=== PATIENT | male | born 1975 | race Caucasian/White ===

== ENCOUNTER 2019-03-05 05:49 | Emergency (ER) | payer OTHER ==
[2019-03-05] MEDS ORDERED: Tetracaine HCl/PF 0.5% 4 ML Bottle EYELF ONE (06:02)
--- NOTE | 2019-03-05 06:19 | EDM.PDOC ---
ED HPI GENERAL MEDICAL PROBLEM - General Chief Complaint: Eye Problems Stated Complaint: OBJECT IN EYE Time Seen by Provider: 03/05/19 06:01 - History of Present Illness INITIAL COMMENTS - FREE TEXT/NARRATIVE: HISTORY AND PHYSICAL: History of present illness: The patient is a 43-year-old male who presents with complaints of left eye pain and a foreign body like sensation that started early yesterday evening. He doesn 't remember a specific event but says that he is outside in the dust and exposed to things going around and he started feeling some irritation in his eye which seemed to have worsened through the night. He tried to irrigate his eye and it did not help. He also tried [id number] Visine. He is here for evaluation. His last eye exam was less than 2 years ago he does not wear glasses or contact lenses. He has no systemic complaints Review of systems: As per history of present illness and below otherwise all systems reviewed and negative. Past medical history: As per history of present illness and as reviewed below otherwise noncontributory. Surgical history: As per history of present illness and as reviewed below otherwise noncontributory. Social history: No reported history of drug or alcohol abuse. Family history: As per history of present illness and as reviewed below otherwise noncontributory. Physical exam: General: Well developed well-nourished man who is nontoxic and vital signs are noted by me. He prefers to wear gloves sunglasses in the ED as he says the light does bother his eyes HEENT: Atraumatic, normocephalic, pupils reactive, EOMs are intact and sclera on the left eye is injected as is the conjunctiva, negative for conjunctival pallor or scleral icterus, mucous membranes moist, throat clear, neck supple, nontender, trachea midline. A foreign body is appreciated on gross exam at the 8 to 9 o'clock position on the iris of the left eye. CC below for more evaluation Lungs: Clear to auscultation, breath sounds equal bilaterally, chest nontender. Heart: S1S2, regular rate and rhythm no overt murmurs Abdomen: Soft, nondistended, nontender. Pelvis: Deferred Genitourinary: Deferred. Rectal: Deferred. Extremities: Atraumatic, full range of motion and no edema. Neurovascular unremarkable. Neuro: Awake, alert, oriented. Cranial nerves II through XII unremarkable. Cerebellum unremarkable. Motor and sensory unremarkable throughout. Exam nonfocal. Diagnostics: Visual acuity per nursing was 20/25 left eye 20/20 right eye Fluoroscein stain was performed by me after tetracaine instillation. No corneal abrasions or uptake were seen but the foreign body as described above was clearly seen. It is a small dark in point object. Therapeutics: Tdap 0615: Case was discussed with Dr. Ellis and he will meet the patient at 7 AM at [facility] for foreign body removal. Patient is aware of this plan Impression: Foreign body to left eye Definitive disposition and diagnosis as appropriate pending reevaluation and review of above. left eye Pain Score (Numeric/FACES): 5 - Related Data Allergies Allergy/AdvReac Type Severity Reaction Status Date / Time No Known Allergies Allergy Verified 03/05/19 06:03 Home Meds: Home Meds . [No Known Home Meds] 03/05/19 [History] Past Medical History HEENT History: Reports: None Cardiovascular History: Reports: None Respiratory History: Reports: None Gastrointestinal History: Reports: None Genitourinary History: Reports: None Musculoskeletal History: Reports: None Neurological History: Reports: None Psychiatric History: Reports: None Endocrine/Metabolic History: Reports: None Hematologic History: Reports: None Immunologic History: Reports: None Oncologic (Cancer) History: Reports: None Dermatologic History: Reports: None - Infectious Disease History Infectious Disease History: Reports: None - Past Surgical History Head Surgeries/Procedures: Reports: None HEENT Surgical History: Reports: Adenoidectomy, Tonsillectomy GI Surgical History: Reports: Appendectomy Male Surgical History: Reports: Vasectomy Musculoskeletal Surgical History: Reports: Other (See Below) Other Musculoskeletal Surgeries/Procedures:: Patient states he has "rods from his left shoulder down to his left elbow." Social & Family History - Family History Family Medical History: Noncontributory - Tobacco Use Smoking Status *Q: Current Every Day Smoker Years of Tobacco use: 3 Packs/Tins Daily: 1 - Caffeine Use Caffeine Use: Reports: Coffee, Soda - Recreational Drug Use Recreational Drug Use: No ED ROS GENERAL - Review of Systems Review Of Systems: ROS reveals no pertinent complaints other than HPI. ED EXAM, GENERAL - Physical Exam Exam: See Below (See dictation) Course - Vital Signs Last Recorded V/S: Last Vital Signs Temp 36.1 C 03/05/19 06:00 Pulse 74 03/05/19 06:00 Resp 18 03/05/19 06:00 BP 138/79 03/05/19 06:00 Pulse Ox 97 03/05/19 06:00 - Orders/Labs/Meds Orders: Active Orders 24 hr Category Date Time Status Communication Order [RC] STAT Care 03/05/19 06:12 Ordered Meds: Medications Discontinued Medications Generic Name Dose Route Start Last Admin Trade Name Chantale PRN Reason Stop Dose Admin Tetracaine HCl 0.5 ml 03/05/19 06:02 Tetracaine 0.5% Steri-Unit Portia EYELF 03/05/19 06:03 ASDIRECTED ONE Departure - Departure Time of Disposition: : Disposition: Home, Self-Care 01 Condition: Good Clinical Impression: Foreign body in eye Qualifiers: Encounter type: initial encounter Laterality: left Qualified Code(s): T15.92XA - Foreign body on external eye, part unspecified, left eye, initial encounter - Discharge Information Referrals: PCP,None [Primary Care Provider] - Additional Instructions: The following information is given to patients seen in the emergency department who are being discharged to home. This information is to outline your options for follow-up care. We provide all patients seen in our emergency department with a follow-up referral. The need for follow-up, as well as the timing and circumstances, are variable depending upon the specifics of your emergency department visit. If you don't have a primary care physician on staff, we will provide you with a referral. We always advise you to contact your personal physician following an emergency department visit to inform them of the circumstance of the visit and for follow-up with them and/or the need for any referrals to a consulting specialist. The emergency department will also refer you to a specialist when appropriate. This referral assures that you have the opportunity for followup care with a specialist. All of these measure are taken in an effort to provide you with optimal care, which includes your followup. Under all circumstances we always encourage you to contact your private physician who remains a resource for coordinating your care. When calling for followup care, please make the office aware that this follow-up is from your recent emergency room visit. If for any reason you are refused follow-up, please contact the [facility] emergency department at and ask to speak to the emergency department charge nurse. [facility] [place]--ophthalmology [address] [place] [address] Please go to [facility] and go to the main entrance and wait for Dr. Ellis who will meet you at 7 AM. He will do a formal exam and remove the foreign object. Return to ER as needed and as discussed - My Orders Last 24 Hours: My Active Orders 03/05/19 06:12 Communication Order [RC] STAT - Assessment/Plan Last 24 Hours: My Active Orders 03/05/19 06:12 Communication Order [RC] STAT
== END 2019-03-05 06:29 | disposition home or self-care (01) ==
LOC: MW.ED 05:49
DX: T15.92XA Foreign body on external eye, part unspecified, left eye, initial encounter (principal)
CPT/HCPCS: 99283